=== PATIENT | male | born 1955 | race Caucasian/White ===

== ENCOUNTER 2017-12-22 20:23 | Emergency (ER) | payer MEDICARE, OTHER ==
[2017-12-22] MEDS: HYDROmorphONE 1 MG/ML SYG IM ×2 (21:21→23:09)
== END 2017-12-23 00:25 | disposition home or self-care (01) ==
LOC: E/R 12-23 00:25
DX: I73.9 Peripheral vascular disease, unspecified (principal); N18.6 End stage renal disease; I12.0 Hypertensive chronic kidney disease with stage 5 chronic kidney disease or end stage renal disease; I25.10 Atherosclerotic heart disease of native coronary artery without angina pectoris; Z79.82 Long term (current) use of aspirin; Z95.0 Presence of cardiac pacemaker; Z87.891 Personal history of nicotine dependence
CPT/HCPCS: 73130; 73130-LT; 93931; 96372; 99285-25

== ENCOUNTER 2018-01-30 16:57 | Inpatient (IN) | payer MEDICARE, OTHER ==
[2018-01-30] MEDS: ONDANSETRON 4 MG INJ IV (17:41)
[2018-01-30] MEDS: morphine 2 MG INJ IV (17:44)
[2018-01-30 17:45] LABS: ADD MAN DIFF? NO
[2018-01-30] MEDS: IPRATROPIUM (NEB) 0.5 MG/2.5 ML AMP NEB (17:47)
[2018-01-30] MEDS: LEVALBUTEROL (NEB) 1.25 MG/0.5 ML AMP INH (17:47)
[2018-01-30 17:48] LABS: ABNORMAL IP MESSAGE 1; BASOPHIL # 0.1 10^3/ul (0.0-0.1); BASOPHILS % 0.5 % (0.0-2.0); EOSINOPHILS % 0.1 % (0.0-7.0); HEMATOCRIT 35.7 % (42.0-52.0); LYMPHOCYTES # 0.3 10^3/ul (0.8-2.9); MEAN CORPUSCULAR HEMOGLOBIN 26.7 pg (29.0-33.0); MEAN CORPUSCULAR HGB CONC 30.8 g/dl (32.0-37.0); MEAN CORPUSCULAR VOLUME 86.7 fl (82.0-101.0); MEAN PLATELET VOLUME 9.5 fl (7.4-10.4); MONOCYTE # 1.3 10^3/ul (0.3-0.9); MONOCYTES % 12.9 % (0.0-11.0); NEUTROPHIL # 8.1 10^3/ul (1.6-7.5); NEUTROPHILS % 83.1 % (39.0-77.0); PLATELET COUNT 253 10^3/UL (140-415); POSITIVE DIFF @See below; RED BLOOD COUNT 4.12 10^6/ul (4.70-6.10); RED CELL DISTRIBUTION WIDTH 17.8 % (11.5-14.5)
[2018-01-30 17:48] LABS: WHITE BLOOD COUNT 9.8 10^3/ul (4.8-10.8)
[2018-01-30] MEDS: ACETAMINOPHEN 325 MG TAB PO (17:48)
[2018-01-30] MEDS: PROMETHAZINE/CODEINE 5ML CUP PO (17:49)
[2018-01-30 18:03] LABS: INR 1.47; PROTIME 18.1 Sec (11.9-14.9); PT RATIO 1.4
[2018-01-30 18:04] LABS: PARTIAL THROMBOPLASTIN TIME 32.6 Sec (25.0-35.0)
[2018-01-30 18:14] LABS: ALANINE AMINOTRANSFERASE 17 IU/L (13-69); ALBUMIN 4.1 g/dl (3.3-4.9); ALBUMIN/GLOBULIN RATIO 1.13; ALKALINE PHOSPHATASE 200 IU/L (42-121); ANION GAP 19 (8-16); ASPARTATE AMINO TRANSFERASE 17 IU/L (15-46); BILIRUBIN,INDIRECT 0.1 mg/dl (0-1.1); BILIRUBIN,TOTAL 0.1 mg/dl (0.2-1.3); BLOOD UREA NITROGEN 46 mg/dl (7-20); CALCIUM 11.5 mg/dl (8.4-10.2); CARBON DIOXIDE 30 mmol/L (21-31); CHLORIDE 95 mmol/L (97-110); CREATININE 5.62 mg/dl (0.61-1.24); GLUCOSE 131 mg/dl (70-220); POTASSIUM 4.6 mmol/L (3.5-5.1); SODIUM 139 mmol/L (135-144); TOTAL PROTEIN 7.7 g/dl (6.1-8.1)
[2018-01-30 18:17] LABS: LACTIC ACID 2.8 mmol/L (0.5-2.0)
[2018-01-30 18:25] LABS: TROPONIN-I 0.069 ng/ml (0.00-0.12)
[2018-01-30] MEDS: VANCOMYCIN 1 GM (PMX) 250 ML IVPB (19:05)
[2018-01-30 20:09] LABS: LACTIC ACID 1.5 mmol/L (0.5-2.0)
[2018-01-30] MEDS: PIPER-TAZO 2.25 GM (PMX) 50 ML IVPB (20:59)
[2018-01-30] MEDS: morphine 4 MG/ML VIAL IV (22:58)
[2018-01-30] MEDS ORDERED: VANCOMYCIN IV PER PHARMACY XX (23:00)
[2018-01-30 23:07] LABS: LACTIC ACID 1.2 mmol/L (0.5-2.0)
[2018-01-30 23:36] LABS: AADO2 Arterial 28.8 mmHg (7.0-24.0); Arterial Base Excess 4.2 mmol/L (-3.0-3); Arterial Blood Gas Oxygen Sat 92.9 mmHG (95.0-98.0); Arterial COHb 0.3 % (0.0-3.0); Arterial Fraction of Oxyhgb 92.5 % (93.0-99.0); Arterial HCO3 28.5 mmol/L (22.0-26.0); Arterial MetHb 0.1 % (0.0-1.5); Arterial Total Hemglobin 10.3 g/dl (12.0-18.0); Arterial pCO2 41.3 mmhg (35-45); MODE ROOM AIR; Site Right Brachial
[2018-01-30] MEDS: CEFEPIME 1GM/50 ML (PMX) 50 ML IVPB (23:41)
[2018-01-31] MEDS: LEVALBUTEROL (NEB) 0.63 MG/3 ML AMP HHN ×4 (00:15→23:24)
[2018-01-31] MEDS: HYDROCODONE/APAP (10/325) TAB PO (05:15)
[2018-01-31 05:47] LABS: ADD MAN DIFF? NO
[2018-01-31 05:52] LABS: WHITE BLOOD COUNT 8.9 10^3/ul (4.8-10.8)
[2018-01-31 05:52] LABS: ABNORMAL IP MESSAGE 1; BASOPHIL # 0.1 10^3/ul (0.0-0.1); BASOPHILS % 0.7 % (0.0-2.0); EOSINOPHILS # 0.1 10^3/ul (0.0-0.5); EOSINOPHILS % 0.6 % (0.0-7.0); HEMATOCRIT 31.7 % (42.0-52.0); HEMOGLOBIN 9.8 g/dl (14.0-18.0); LYMPHOCYTES # 0.4 10^3/ul (0.8-2.9); LYMPHOCYTES % 3.9 % (15.0-51.0); MEAN CORPUSCULAR HEMOGLOBIN 27.1 pg (29.0-33.0); MEAN CORPUSCULAR HGB CONC 30.9 g/dl (32.0-37.0); MEAN CORPUSCULAR VOLUME 87.8 fl (82.0-101.0); MEAN PLATELET VOLUME 9.7 fl (7.4-10.4); MONOCYTE # 1.1 10^3/ul (0.3-0.9); MONOCYTES % 12.4 % (0.0-11.0); NEUTROPHIL # 7.3 10^3/ul (1.6-7.5); NEUTROPHILS % 82.1 % (39.0-77.0); PLATELET COUNT 218 10^3/UL (140-415); POSITIVE DIFF @See below; RED BLOOD COUNT 3.61 10^6/ul (4.70-6.10); RED CELL DISTRIBUTION WIDTH 17.7 % (11.5-14.5)
[2018-01-31] MEDS: SEVELAMER CARBONATE 0.8 GM PKT PO ×3 (08:00→17:52)
[2018-01-31] MEDS: CALCIUM ACETATE 667 MG CAP PO ×3 (08:21→17:53)
[2018-01-31] MEDS: MULTIVIT/CA CARB/B CMPLX/FA TAB PO (08:21)
[2018-01-31] MEDS: AMLODIPINE 5 MG TAB PO (08:22)
[2018-01-31] MEDS: CINACALCET 30 MG TAB PO ×2 (08:22→23:45)
[2018-01-31] MEDS: CLOPIDOGREL 75 MG TAB PO (08:25)
[2018-01-31] MEDS: ASPIRIN (EC) 81 MG TAB PO (08:25)
[2018-01-31] MEDS: PROMETHAZINE/CODEINE 5ML CUP PO (15:06)
[2018-01-31] MEDS: morphine 2 MG INJ IV ×2 (18:08→21:11)
[2018-01-31] MEDS: LOSARTAN 25 MG TAB PO (23:45)
[2018-01-31] MEDS: ATORVASTATIN 40 MG TAB PO (23:46)
[2018-01-31] MEDS: CEFEPIME 1GM/50 ML (PMX) 50 ML IVPB (23:46)
[2018-01-31] MEDS: HYDROCODONE/APAP (5/325) TAB PO (23:46)
[2018-02-01] MEDS: morphine 2 MG INJ IV ×2 (05:31→18:12)
[2018-02-01 06:36] LABS: ADD MAN DIFF? NO
[2018-02-01 06:44] LABS: ABNORMAL IP MESSAGE 1; BASOPHIL # 0.1 10^3/ul (0.0-0.1); BASOPHILS % 0.7 % (0.0-2.0); EOSINOPHILS # 0.2 10^3/ul (0.0-0.5); EOSINOPHILS % 2.2 % (0.0-7.0); HEMOGLOBIN 9.7 g/dl (14.0-18.0); LYMPHOCYTES # 0.3 10^3/ul (0.8-2.9); LYMPHOCYTES % 2.8 % (15.0-51.0); MEAN CORPUSCULAR HEMOGLOBIN 27.6 pg (29.0-33.0); MEAN CORPUSCULAR HGB CONC 31.3 g/dl (32.0-37.0); MEAN CORPUSCULAR VOLUME 88.1 fl (82.0-101.0); MEAN PLATELET VOLUME 9.9 fl (7.4-10.4); MONOCYTE # 1.1 10^3/ul (0.3-0.9); MONOCYTES % 11.3 % (0.0-11.0); NEUTROPHIL # 7.8 10^3/ul (1.6-7.5); NEUTROPHILS % 82.7 % (39.0-77.0); PLATELET COUNT 204 10^3/UL (140-415); POSITIVE DIFF @See below; RED BLOOD COUNT 3.52 10^6/ul (4.70-6.10); RED CELL DISTRIBUTION WIDTH 17.9 % (11.5-14.5)
[2018-02-01 06:44] LABS: WHITE BLOOD COUNT 9.4 10^3/ul (4.8-10.8)
[2018-02-01 07:08] LABS: ANION GAP 17 (8-16); BLOOD UREA NITROGEN 36 mg/dl (7-20); CALCIUM 10.3 mg/dl (8.4-10.2); CARBON DIOXIDE 30 mmol/L (21-31); CHLORIDE 98 mmol/L (97-110); CREATININE 4.73 mg/dl (0.61-1.24); GLUCOSE 69 mg/dl (70-220); POTASSIUM 5.2 mmol/L (3.5-5.1); SODIUM 140 mmol/L (135-144)
[2018-02-01] MEDS: LEVALBUTEROL (NEB) 0.63 MG/3 ML AMP HHN ×2 (08:00→16:00)
[2018-02-01] MEDS: CINACALCET 30 MG TAB PO ×2 (08:39→20:42)
[2018-02-01] MEDS: SEVELAMER CARBONATE 0.8 GM PKT PO ×4 (08:39→18:12)
[2018-02-01] MEDS: AMLODIPINE 5 MG TAB PO (08:40)
[2018-02-01] MEDS: CLOPIDOGREL 75 MG TAB PO (08:40)
[2018-02-01] MEDS: CALCIUM ACETATE 667 MG CAP PO ×4 (08:40→18:06)
[2018-02-01] MEDS: MULTIVIT/CA CARB/B CMPLX/FA TAB PO (08:40)
[2018-02-01] MEDS: LOSARTAN 25 MG TAB PO ×2 (08:40→20:42)
[2018-02-01] MEDS: ASPIRIN 81 MG TAB PO (08:41)
[2018-02-01] MEDS: PROMETHAZINE/CODEINE 5ML CUP PO ×2 (08:47)
[2018-02-01] MEDS: VANCOMYCIN 750 MG in DEXTROSE 5% 150 ML IVPB (12:57)
[2018-02-01] MEDS: ATORVASTATIN 40 MG TAB PO (20:41)
[2018-02-01] MEDS: HYDROCODONE/APAP (5/325) TAB PO (20:49)
[2018-02-01] MEDS: CEFEPIME 1GM/50 ML (PMX) 50 ML IVPB (23:04)
[2018-02-02] MEDS: LEVALBUTEROL (NEB) 0.63 MG/3 ML AMP HHN ×4 (00:24→23:26)
[2018-02-02] MEDS: NIFEdipine (XL) 60 MG TAB PO ×3 (00:30→20:41)
[2018-02-02] MEDS: morphine 2 MG INJ IV ×2 (01:16→19:45)
[2018-02-02] MEDS: HYDROCODONE/APAP (5/325) TAB PO (04:53)
[2018-02-02] MEDS: CALCIUM ACETATE 667 MG CAP PO ×3 (07:55→18:28)
[2018-02-02 08:32] LABS: ADD MAN DIFF? NO
[2018-02-02 08:35] LABS: WHITE BLOOD COUNT 8.9 10^3/ul (4.8-10.8)
[2018-02-02 08:35] LABS: ABNORMAL IP MESSAGE 1; BASOPHIL # 0.1 10^3/ul (0.0-0.1); BASOPHILS % 0.8 % (0.0-2.0); EOSINOPHILS # 0.1 10^3/ul (0.0-0.5); EOSINOPHILS % 1.6 % (0.0-7.0); HEMATOCRIT 31.6 % (42.0-52.0); HEMOGLOBIN 9.6 g/dl (14.0-18.0); LYMPHOCYTES # 0.4 10^3/ul (0.8-2.9); LYMPHOCYTES % 4.4 % (15.0-51.0); MEAN CORPUSCULAR HEMOGLOBIN 26.7 pg (29.0-33.0); MEAN CORPUSCULAR HGB CONC 30.4 g/dl (32.0-37.0); MEAN PLATELET VOLUME 9.9 fl (7.4-10.4); MONOCYTES % 11.4 % (0.0-11.0); NEUTROPHIL # 7.2 10^3/ul (1.6-7.5); NEUTROPHILS % 81.5 % (39.0-77.0); PLATELET COUNT 225 10^3/UL (140-415); POSITIVE DIFF @See below; RED BLOOD COUNT 3.59 10^6/ul (4.70-6.10); RED CELL DISTRIBUTION WIDTH 17.6 % (11.5-14.5)
[2018-02-02] MEDS: ASPIRIN 81 MG TAB PO (09:00)
[2018-02-02] MEDS: MULTIVIT/CA CARB/B CMPLX/FA TAB PO (09:00)
[2018-02-02] MEDS: CLOPIDOGREL 75 MG TAB PO (09:00)
[2018-02-02] MEDS: CINACALCET 30 MG TAB PO ×2 (09:00→20:41)
[2018-02-02 09:02] LABS: ANION GAP 20 (8-16); BLOOD UREA NITROGEN 55 mg/dl (7-20); CALCIUM 10.1 mg/dl (8.4-10.2); CARBON DIOXIDE 28 mmol/L (21-31); CHLORIDE 97 mmol/L (97-110); CREATININE 6.55 mg/dl (0.61-1.24); GLUCOSE 63 mg/dl (70-220); POTASSIUM 5.7 mmol/L (3.5-5.1); SODIUM 139 mmol/L (135-144)
[2018-02-02] MEDS: SEVELAMER CARBONATE 0.8 GM PKT PO ×3 (09:19→18:29)
[2018-02-02 09:30] LABS: HEPATITIS B SURFACE ANTIGEN NEGATIVE (NEGATIVE)
[2018-02-02] MEDS: LOSARTAN 25 MG TAB PO ×2 (10:41→20:42)
[2018-02-02] MEDS: BENAZEPRIL 40 MG TAB PO (10:43)
[2018-02-02] MEDS: AMLODIPINE 5 MG TAB PO (10:43)
[2018-02-02] MEDS ORDERED: MEGESTROL 40 MG TAB PO (13:00)
[2018-02-02] MEDS: MEGESTROL (40 MG/ML) 10ML CUP PO ×2 (15:42→20:41)
[2018-02-02] MEDS: EPOETIN 4000 UNITS/1 ML INJ (ESRD) IV (18:30)
[2018-02-02] MEDS: ATORVASTATIN 40 MG TAB PO (20:41)
[2018-02-02] MEDS: CEFEPIME 1GM/50 ML (PMX) 50 ML IVPB (22:42)
[2018-02-03] MEDS: morphine 2 MG INJ IV ×3 (00:41→16:37)
[2018-02-03] MEDS: HYDROCODONE/APAP (5/325) TAB PO (01:44)
[2018-02-03] MEDS: LEVALBUTEROL (NEB) 0.63 MG/3 ML AMP HHN ×3 (08:00→22:16)
[2018-02-03] MEDS: AMLODIPINE 5 MG TAB PO (09:30)
[2018-02-03] MEDS: SEVELAMER CARBONATE 0.8 GM PKT PO ×3 (09:30→17:25)
[2018-02-03] MEDS: LOSARTAN 25 MG TAB PO ×2 (09:31→20:15)
[2018-02-03] MEDS: BENAZEPRIL 40 MG TAB PO (09:31)
[2018-02-03] MEDS: MEGESTROL (40 MG/ML) 10ML CUP PO ×2 (09:31→20:14)
[2018-02-03] MEDS: ASPIRIN 81 MG TAB PO (09:32)
[2018-02-03] MEDS: CLOPIDOGREL 75 MG TAB PO (09:32)
[2018-02-03] MEDS: MULTIVIT/CA CARB/B CMPLX/FA TAB PO (09:32)
[2018-02-03] MEDS: CALCIUM ACETATE 667 MG CAP PO ×3 (09:32→17:25)
[2018-02-03] MEDS: CINACALCET 30 MG TAB PO ×2 (09:32→20:14)
[2018-02-03] MEDS: NIFEdipine (XL) 60 MG TAB PO ×2 (09:32→20:16)
[2018-02-03] MEDS: PROMETHAZINE/CODEINE 5ML CUP PO (17:21)
[2018-02-03] MEDS: LACTULOSE 30ML CUP PO (18:47)
[2018-02-03] MEDS: ONDANSETRON 4 MG TAB PO (19:58)
[2018-02-03] MEDS: ATORVASTATIN 40 MG TAB PO (20:20)
[2018-02-04] MEDS: CEFEPIME 1GM/50 ML (PMX) 50 ML IVPB (00:10)
[2018-02-04] MEDS: morphine 2 MG INJ IV ×4 (00:10→20:21)
[2018-02-04] MEDS: LEVALBUTEROL (NEB) 0.63 MG/3 ML AMP HHN ×2 (08:00→15:24)
[2018-02-04] MEDS: CINACALCET 30 MG TAB PO ×2 (09:03→20:20)
[2018-02-04] MEDS: MEGESTROL (40 MG/ML) 10ML CUP PO ×2 (09:03→20:19)
[2018-02-04] MEDS: SEVELAMER CARBONATE 0.8 GM PKT PO ×3 (09:03→17:55)
[2018-02-04] MEDS: MULTIVIT/CA CARB/B CMPLX/FA TAB PO (09:04)
[2018-02-04] MEDS: NIFEdipine (XL) 60 MG TAB PO ×2 (09:05→20:20)
[2018-02-04] MEDS: AMLODIPINE 5 MG TAB PO (09:05)
[2018-02-04] MEDS: BENAZEPRIL 40 MG TAB PO (09:05)
[2018-02-04] MEDS: CLOPIDOGREL 75 MG TAB PO (09:06)
[2018-02-04] MEDS: LOSARTAN 25 MG TAB PO ×2 (09:06→20:20)
[2018-02-04] MEDS: ASPIRIN 81 MG TAB PO (09:07)
[2018-02-04] MEDS: CALCIUM ACETATE 667 MG CAP PO ×3 (09:07→17:55)
[2018-02-04 09:21] LABS: ADD MAN DIFF? NO
[2018-02-04 09:30] LABS: ABNORMAL IP MESSAGE 1; BASOPHILS % 0.4 % (0.0-2.0); EOSINOPHILS # 0.1 10^3/ul (0.0-0.5); HEMATOCRIT 30.5 % (42.0-52.0); HEMOGLOBIN 9.6 g/dl (14.0-18.0); LYMPHOCYTES # 0.4 10^3/ul (0.8-2.9); LYMPHOCYTES % 4.9 % (15.0-51.0); MEAN CORPUSCULAR HGB CONC 31.5 g/dl (32.0-37.0); MEAN CORPUSCULAR VOLUME 85.9 fl (82.0-101.0); MEAN PLATELET VOLUME 10.2 fl (7.4-10.4); MONOCYTE # 1.2 10^3/ul (0.3-0.9); MONOCYTES % 12.7 % (0.0-11.0); NEUTROPHIL # 7.3 10^3/ul (1.6-7.5); NEUTROPHILS % 80.6 % (39.0-77.0); PLATELET COUNT 256 10^3/UL (140-415); POSITIVE DIFF @See below; RED BLOOD COUNT 3.55 10^6/ul (4.70-6.10); RED CELL DISTRIBUTION WIDTH 17.5 % (11.5-14.5)
[2018-02-04 09:30] LABS: WHITE BLOOD COUNT 9.1 10^3/ul (4.8-10.8)
[2018-02-04 09:50] LABS: ANION GAP 18 (8-16); BLOOD UREA NITROGEN 51 mg/dl (7-20); CALCIUM 9.2 mg/dl (8.4-10.2); CARBON DIOXIDE 29 mmol/L (21-31); CHLORIDE 98 mmol/L (97-110); CREATININE 5.99 mg/dl (0.61-1.24); GLUCOSE 104 mg/dl (70-220); POTASSIUM 5.3 mmol/L (3.5-5.1); SODIUM 140 mmol/L (135-144)
[2018-02-04] MEDS: PROMETHAZINE/CODEINE 5ML CUP PO (11:47)
[2018-02-04] MEDS: ATORVASTATIN 40 MG TAB PO (20:20)
[2018-02-04] MEDS: NA POLYST SULFON 15 GM/60 ML BTL PO (20:21)
[2018-02-05] MEDS: CEFEPIME 1GM/50 ML (PMX) 50 ML IVPB (00:12)
[2018-02-05 06:49] LABS: ADD MAN DIFF? NO
[2018-02-05 06:54] LABS: WHITE BLOOD COUNT 9.8 10^3/ul (4.8-10.8)
[2018-02-05 06:54] LABS: ABNORMAL IP MESSAGE 1; BASOPHIL # 0.1 10^3/ul (0.0-0.1); BASOPHILS % 0.5 % (0.0-2.0); EOSINOPHILS # 0.1 10^3/ul (0.0-0.5); EOSINOPHILS % 0.5 % (0.0-7.0); HEMATOCRIT 30.3 % (42.0-52.0); HEMOGLOBIN 9.7 g/dl (14.0-18.0); LYMPHOCYTES # 0.5 10^3/ul (0.8-2.9); LYMPHOCYTES % 5.1 % (15.0-51.0); MEAN CORPUSCULAR HEMOGLOBIN 26.6 pg (29.0-33.0); MEAN CORPUSCULAR VOLUME 83.2 fl (82.0-101.0); MEAN PLATELET VOLUME 9.7 fl (7.4-10.4); MONOCYTE # 1.3 10^3/ul (0.3-0.9); MONOCYTES % 13.2 % (0.0-11.0); NEUTROPHIL # 7.9 10^3/ul (1.6-7.5); NEUTROPHILS % 80.2 % (39.0-77.0); PLATELET COUNT 256 10^3/UL (140-415); POSITIVE DIFF @See below; RED BLOOD COUNT 3.64 10^6/ul (4.70-6.10); RED CELL DISTRIBUTION WIDTH 17.3 % (11.5-14.5)
[2018-02-05 07:20] LABS: ANION GAP 19 (8-16); BLOOD UREA NITROGEN 74 mg/dl (7-20); CALCIUM 8.8 mg/dl (8.4-10.2); CARBON DIOXIDE 26 mmol/L (21-31); CHLORIDE 99 mmol/L (97-110); CREATININE 7.13 mg/dl (0.61-1.24); GLUCOSE 83 mg/dl (70-220); POTASSIUM 5.8 mmol/L (3.5-5.1); SODIUM 138 mmol/L (135-144)
[2018-02-05] MEDS: SEVELAMER CARBONATE 0.8 GM PKT PO ×3 (08:27→17:33)
[2018-02-05] MEDS: CALCIUM ACETATE 667 MG CAP PO ×3 (08:27→17:33)
[2018-02-05] MEDS: morphine 2 MG INJ IV ×2 (08:44→20:00)
[2018-02-05] MEDS: CLOPIDOGREL 75 MG TAB PO (09:00)
[2018-02-05] MEDS: LOSARTAN 25 MG TAB PO ×2 (09:00→21:00)
[2018-02-05] MEDS: MULTIVIT/CA CARB/B CMPLX/FA TAB PO (09:00)
[2018-02-05] MEDS: AMLODIPINE 5 MG TAB PO (09:00)
[2018-02-05] MEDS: NIFEdipine (XL) 60 MG TAB PO ×2 (09:00→21:00)
[2018-02-05] MEDS: ASPIRIN 81 MG TAB PO (09:00)
[2018-02-05] MEDS: MEGESTROL (40 MG/ML) 10ML CUP PO ×2 (09:00→21:00)
[2018-02-05] MEDS: BENAZEPRIL 40 MG TAB PO (09:00)
[2018-02-05] MEDS: CINACALCET 30 MG TAB PO ×2 (09:00→21:00)
[2018-02-05] MEDS: LEVALBUTEROL (NEB) 0.63 MG/3 ML AMP HHN ×4 (09:18→23:33)
[2018-02-05] MEDS: VANCOMYCIN 750 MG in DEXTROSE 5% 150 ML IVPB (12:39)
[2018-02-05] MEDS: EPOETIN 4000 UNITS/1 ML INJ (ESRD) IV (17:34)
[2018-02-05] MEDS: ATORVASTATIN 40 MG TAB PO (21:00)
[2018-02-05] MEDS: HYDROCODONE/APAP (5/325) TAB PO (23:24)
[2018-02-06] MEDS: morphine 2 MG INJ IV ×3 (00:06→20:25)
[2018-02-06] MEDS: hydrALAzine 20 MG INJ IV ×2 (06:25→13:52)
[2018-02-06 07:42] LABS: ADD MAN DIFF? NO
[2018-02-06] MEDS: LEVALBUTEROL (NEB) 0.63 MG/3 ML AMP HHN ×3 (07:44→23:44)
[2018-02-06 07:45] LABS: ABNORMAL IP MESSAGE 1; BASOPHIL # 0.1 10^3/ul (0.0-0.1); BASOPHILS % 0.6 % (0.0-2.0); EOSINOPHILS # 0.1 10^3/ul (0.0-0.5); EOSINOPHILS % 1.6 % (0.0-7.0); HEMOGLOBIN 9.7 g/dl (14.0-18.0); LYMPHOCYTES # 0.4 10^3/ul (0.8-2.9); MEAN CORPUSCULAR HEMOGLOBIN 26.8 pg (29.0-33.0); MEAN CORPUSCULAR HGB CONC 32.3 g/dl (32.0-37.0); MEAN CORPUSCULAR VOLUME 82.9 fl (82.0-101.0); MEAN PLATELET VOLUME 10.2 fl (7.4-10.4); MONOCYTE # 1.1 10^3/ul (0.3-0.9); MONOCYTES % 12.5 % (0.0-11.0); NEUTROPHIL # 7.2 10^3/ul (1.6-7.5); NEUTROPHILS % 80.6 % (39.0-77.0); PLATELET COUNT 251 10^3/UL (140-415); POSITIVE DIFF @See below; RED BLOOD COUNT 3.62 10^6/ul (4.70-6.10); RED CELL DISTRIBUTION WIDTH 17.4 % (11.5-14.5)
[2018-02-06 07:45] LABS: WHITE BLOOD COUNT 8.9 10^3/ul (4.8-10.8)
[2018-02-06] MEDS: SEVELAMER CARBONATE 0.8 GM PKT PO ×3 (07:55→17:49)
[2018-02-06] MEDS: HYDROCODONE/APAP (5/325) TAB PO ×4 (07:58→23:16)
[2018-02-06 08:08] LABS: ANION GAP 20 (8-16); BLOOD UREA NITROGEN 33 mg/dl (7-20); CALCIUM 9.2 mg/dl (8.4-10.2); CARBON DIOXIDE 30 mmol/L (21-31); CHLORIDE 94 mmol/L (97-110); CREATININE 4.04 mg/dl (0.61-1.24); GLUCOSE 67 mg/dl (70-220); POTASSIUM 4.5 mmol/L (3.5-5.1); SODIUM 139 mmol/L (135-144)
[2018-02-06] MEDS: BENAZEPRIL 40 MG TAB PO (08:35)
[2018-02-06] MEDS: LOSARTAN 25 MG TAB PO ×2 (08:35→20:27)
[2018-02-06] MEDS: AMLODIPINE 5 MG TAB PO (08:36)
[2018-02-06] MEDS: NIFEdipine (XL) 60 MG TAB PO ×2 (08:36→20:27)
[2018-02-06] MEDS: ASPIRIN 81 MG TAB PO (08:50)
[2018-02-06] MEDS: MEGESTROL (40 MG/ML) 10ML CUP PO ×2 (08:51→20:35)
[2018-02-06] MEDS: CINACALCET 30 MG TAB PO ×2 (08:51→20:35)
[2018-02-06] MEDS: MULTIVIT/CA CARB/B CMPLX/FA TAB PO (08:51)
[2018-02-06] MEDS: CLOPIDOGREL 75 MG TAB PO (08:51)
[2018-02-06] MEDS: ATORVASTATIN 40 MG TAB PO (20:35)
[2018-02-07] MEDS: HYDROCODONE/APAP (5/325) TAB PO (06:53)
[2018-02-07] MEDS: LEVALBUTEROL (NEB) 0.63 MG/3 ML AMP HHN ×2 (08:00→16:00)
[2018-02-07] MEDS: MULTIVIT/CA CARB/B CMPLX/FA TAB PO (09:00)
[2018-02-07] MEDS: CLOPIDOGREL 75 MG TAB PO (09:07)
[2018-02-07] MEDS: CINACALCET 30 MG TAB PO ×2 (09:07→21:00)
[2018-02-07] MEDS: PROMETHAZINE/CODEINE 5ML CUP PO ×2 (09:07→17:46)
[2018-02-07] MEDS: AMLODIPINE 5 MG TAB PO (09:07)
[2018-02-07] MEDS: BENAZEPRIL 40 MG TAB PO (09:08)
[2018-02-07] MEDS: NIFEdipine (XL) 60 MG TAB PO ×2 (09:08→21:00)
[2018-02-07] MEDS: MEGESTROL (40 MG/ML) 10ML CUP PO ×2 (09:09→21:00)
[2018-02-07] MEDS: LOSARTAN 25 MG TAB PO ×2 (09:09→21:00)
[2018-02-07] MEDS: ASPIRIN 81 MG TAB PO (09:09)
[2018-02-07] MEDS: SEVELAMER CARBONATE 0.8 GM PKT PO ×3 (09:09→17:55)
[2018-02-07 15:30] LABS: ADD MAN DIFF? NO
[2018-02-07 15:39] LABS: WHITE BLOOD COUNT 8.8 10^3/ul (4.8-10.8)
[2018-02-07 15:39] LABS: BASOPHILS % 0.3 % (0.0-2.0); EOSINOPHILS % 0.5 % (0.0-7.0); HEMATOCRIT 29.8 % (42.0-52.0); HEMOGLOBIN 9.7 g/dl (14.0-18.0); LYMPHOCYTES # 0.3 10^3/ul (0.8-2.9); LYMPHOCYTES % 3.1 % (15.0-51.0); MEAN CORPUSCULAR HEMOGLOBIN 26.9 pg (29.0-33.0); MEAN CORPUSCULAR HGB CONC 32.6 g/dl (32.0-37.0); MEAN CORPUSCULAR VOLUME 82.8 fl (82.0-101.0); MEAN PLATELET VOLUME 9.7 fl (7.4-10.4); MONOCYTE # 1.2 10^3/ul (0.3-0.9); MONOCYTES % 13.2 % (0.0-11.0); NEUTROPHIL # 7.3 10^3/ul (1.6-7.5); NEUTROPHILS % 82.3 % (39.0-77.0); PLATELET COUNT 316 10^3/UL (140-415); RED CELL DISTRIBUTION WIDTH 17.1 % (11.5-14.5)
[2018-02-07 15:55] LABS: ANION GAP 16 (8-16); BLOOD UREA NITROGEN 22 mg/dl (7-20); CALCIUM 9.1 mg/dl (8.4-10.2); CARBON DIOXIDE 31 mmol/L (21-31); CHLORIDE 99 mmol/L (97-110); CREATININE 2.71 mg/dl (0.61-1.24); GLUCOSE 98 mg/dl (70-220); SODIUM 142 mmol/L (135-144)
[2018-02-07] MEDS: morphine 2 MG INJ IV ×2 (16:02→23:45)
[2018-02-07] MEDS: EPOETIN 4000 UNITS/1 ML INJ (ESRD) IV (17:06)
[2018-02-07] MEDS: DIPHENHYDRAMINE 25 MG CAP PO (21:01)
[2018-02-07] MEDS: ATORVASTATIN 40 MG TAB PO (21:08)
[2018-02-08] MEDS: morphine 2 MG INJ IV ×2 (06:02→18:54)
[2018-02-08] MEDS: LEVALBUTEROL (NEB) 0.63 MG/3 ML AMP HHN ×3 (07:45→16:04)
[2018-02-08] MEDS: CINACALCET 30 MG TAB PO ×2 (09:00→21:00)
[2018-02-08] MEDS: MULTIVIT/CA CARB/B CMPLX/FA TAB PO (09:00)
[2018-02-08] MEDS: AMLODIPINE 5 MG TAB PO (09:00)
[2018-02-08] MEDS: BENAZEPRIL 40 MG TAB PO (09:00)
[2018-02-08] MEDS: MEGESTROL (40 MG/ML) 10ML CUP PO ×2 (09:00→21:00)
[2018-02-08] MEDS: ASPIRIN 81 MG TAB PO (09:00)
[2018-02-08] MEDS: LOSARTAN 25 MG TAB PO ×2 (09:00→21:00)
[2018-02-08] MEDS: CLOPIDOGREL 75 MG TAB PO (09:00)
[2018-02-08] MEDS: NIFEdipine (XL) 60 MG TAB PO ×2 (09:00→21:00)
[2018-02-08] MEDS: SEVELAMER CARBONATE 0.8 GM PKT PO ×4 (09:17→18:09)
[2018-02-08] MEDS: LACTULOSE 30ML CUP PO (12:06)
[2018-02-08] MEDS: NYSTATIN SUSP 5 ML CUP PO ×3 (13:00→21:00)
[2018-02-08] MEDS: ATORVASTATIN 40 MG TAB PO (21:00)
[2018-02-09] MEDS: morphine 2 MG INJ IV ×3 (04:20→22:43)
[2018-02-09] MEDS: SEVELAMER CARBONATE 0.8 GM PKT PO ×3 (07:55→17:04)
[2018-02-09 07:56] LABS: HEMOGLOBIN 9.5 g/dl (14.0-18.0)
[2018-02-09 07:56] LABS: HEMATOCRIT 29.5 % (42.0-52.0)
[2018-02-09] MEDS: LEVALBUTEROL (NEB) 0.63 MG/3 ML AMP HHN ×4 (08:00→23:24)
[2018-02-09 08:17] LABS: ADD MAN DIFF? NO
[2018-02-09 08:19] LABS: WHITE BLOOD COUNT 9.8 10^3/ul (4.8-10.8)
[2018-02-09 08:19] LABS: ABNORMAL IP MESSAGE 1; BASOPHIL # 0.1 10^3/ul (0.0-0.1); BASOPHILS % 0.5 % (0.0-2.0); EOSINOPHILS % 0.2 % (0.0-7.0); HEMATOCRIT 29.2 % (42.0-52.0); HEMOGLOBIN 9.5 g/dl (14.0-18.0); LYMPHOCYTES # 0.6 10^3/ul (0.8-2.9); LYMPHOCYTES % 5.9 % (15.0-51.0); MEAN CORPUSCULAR HEMOGLOBIN 27.1 pg (29.0-33.0); MEAN CORPUSCULAR HGB CONC 32.5 g/dl (32.0-37.0); MEAN CORPUSCULAR VOLUME 83.4 fl (82.0-101.0); MEAN PLATELET VOLUME 9.3 fl (7.4-10.4); MONOCYTE # 1.2 10^3/ul (0.3-0.9); MONOCYTES % 12.4 % (0.0-11.0); NEUTROPHIL # 7.9 10^3/ul (1.6-7.5); NEUTROPHILS % 80.5 % (39.0-77.0); PLATELET COUNT 305 10^3/UL (140-415); POSITIVE DIFF @See below; RED CELL DISTRIBUTION WIDTH 17.4 % (11.5-14.5)
[2018-02-09 08:23] LABS: ANION GAP 21 (8-16); BLOOD UREA NITROGEN 47 mg/dl (7-20); CALCIUM 9.7 mg/dl (8.4-10.2); CARBON DIOXIDE 29 mmol/L (21-31); CHLORIDE 99 mmol/L (97-110); CREATININE 5.89 mg/dl (0.61-1.24); GLUCOSE 84 mg/dl (70-220); POTASSIUM 5.1 mmol/L (3.5-5.1); SODIUM 144 mmol/L (135-144)
[2018-02-09] MEDS: LOSARTAN 25 MG TAB PO ×2 (09:00→21:00)
[2018-02-09] MEDS: CLOPIDOGREL 75 MG TAB PO (09:00)
[2018-02-09] MEDS: MULTIVIT/CA CARB/B CMPLX/FA TAB PO (09:00)
[2018-02-09] MEDS: ASPIRIN 81 MG TAB PO (09:00)
[2018-02-09] MEDS: CINACALCET 30 MG TAB PO ×2 (09:00→21:00)
[2018-02-09] MEDS: MEGESTROL (40 MG/ML) 10ML CUP PO ×2 (09:00→21:00)
[2018-02-09] MEDS: NYSTATIN SUSP 5 ML CUP PO ×3 (09:00→21:00)
[2018-02-09] MEDS: NIFEdipine (XL) 60 MG TAB PO ×2 (09:27→21:00)
[2018-02-09] MEDS: BENAZEPRIL 40 MG TAB PO (09:27)
[2018-02-09] MEDS: AMLODIPINE 5 MG TAB PO (09:28)
[2018-02-09] MEDS: HYDROCODONE/APAP (5/325) TAB PO (10:29)
[2018-02-09] MEDS: EPOETIN 4000 UNITS/1 ML INJ (ESRD) IV (17:05)
[2018-02-09] MEDS: PROMETHAZINE/CODEINE 5ML CUP PO (17:49)
[2018-02-09] MEDS: ATORVASTATIN 40 MG TAB PO (21:00)
[2018-02-09] MEDS: ONDANSETRON 4 MG TAB PO (21:37)
[2018-02-09] MEDS ORDERED: ALBUTEROL 0.083% (NEB) 2.5 MG/3 ML AMP HHN (22:00)
[2018-02-09] MEDS ORDERED: IPRATROPIUM (NEB) 0.5 MG/2.5 ML AMP HHN (22:00)
[2018-02-09] MEDS: AL HYDROX/MG HYDROX/SIMETH 30 ML CUP PO (22:43)
[2018-02-10] MEDS: ZOLPIDEM 5 MG TAB PO (02:02)
[2018-02-10 06:59] LABS: ADD MAN DIFF? NO
[2018-02-10 07:04] LABS: ABNORMAL IP MESSAGE 1; BASOPHIL # 0.1 10^3/ul (0.0-0.1); BASOPHILS % 0.4 % (0.0-2.0); HEMATOCRIT 30.4 % (42.0-52.0); HEMOGLOBIN 9.6 g/dl (14.0-18.0); LYMPHOCYTES # 0.5 10^3/ul (0.8-2.9); LYMPHOCYTES % 3.9 % (15.0-51.0); MEAN CORPUSCULAR HEMOGLOBIN 26.4 pg (29.0-33.0); MEAN CORPUSCULAR HGB CONC 31.6 g/dl (32.0-37.0); MEAN CORPUSCULAR VOLUME 83.7 fl (82.0-101.0); MEAN PLATELET VOLUME 9.2 fl (7.4-10.4); MONOCYTE # 1.4 10^3/ul (0.3-0.9); MONOCYTES % 11.5 % (0.0-11.0); NEUTROPHIL # 10.5 10^3/ul (1.6-7.5); NEUTROPHILS % 83.7 % (39.0-77.0); PLATELET COUNT 369 10^3/UL (140-415); POSITIVE DIFF @See below; RED BLOOD COUNT 3.63 10^6/ul (4.70-6.10); RED CELL DISTRIBUTION WIDTH 17.3 % (11.5-14.5)
[2018-02-10 07:04] LABS: WHITE BLOOD COUNT 12.5 10^3/ul (4.8-10.8)
[2018-02-10 07:21] LABS: ANION GAP 21 (8-16); BLOOD UREA NITROGEN 70 mg/dl (7-20); CALCIUM 9.8 mg/dl (8.4-10.2); CARBON DIOXIDE 31 mmol/L (21-31); CHLORIDE 97 mmol/L (97-110); CREATININE 7.49 mg/dl (0.61-1.24); GLUCOSE 120 mg/dl (70-220); POTASSIUM 5.5 mmol/L (3.5-5.1); SODIUM 143 mmol/L (135-144)
[2018-02-10] MEDS: LEVALBUTEROL (NEB) 0.63 MG/3 ML AMP HHN ×2 (08:00→16:00)
[2018-02-10] MEDS: NYSTATIN SUSP 5 ML CUP PO ×4 (08:14→20:53)
[2018-02-10] MEDS: MULTIVIT/CA CARB/B CMPLX/FA TAB PO (08:15)
[2018-02-10] MEDS: CINACALCET 30 MG TAB PO ×2 (08:15→20:52)
[2018-02-10] MEDS: CLOPIDOGREL 75 MG TAB PO (08:15)
[2018-02-10] MEDS: MEGESTROL (40 MG/ML) 10ML CUP PO ×2 (08:16→20:53)
[2018-02-10] MEDS: ASPIRIN 81 MG TAB PO (08:16)
[2018-02-10] MEDS: LOSARTAN 25 MG TAB PO ×2 (09:00→20:52)
[2018-02-10] MEDS: BENAZEPRIL 40 MG TAB PO (09:00)
[2018-02-10] MEDS: NIFEdipine (XL) 60 MG TAB PO ×2 (09:00→20:53)
[2018-02-10] MEDS: AMLODIPINE 5 MG TAB PO (09:00)
[2018-02-10] MEDS: SEVELAMER CARBONATE 0.8 GM PKT PO ×3 (09:08→17:15)
[2018-02-10] MEDS: morphine 2 MG INJ IV ×2 (10:00→18:03)
[2018-02-10] MEDS: HYDROCODONE/APAP (5/325) TAB PO (12:31)
[2018-02-10] MEDS: AL HYDROX/MG HYDROX/SIMETH 30 ML CUP PO ×2 (12:52→20:52)
[2018-02-10] MEDS: ATORVASTATIN 40 MG TAB PO (20:52)
[2018-02-10] MEDS: PROMETHAZINE/CODEINE 5ML CUP PO (20:57)
[2018-02-11] MEDS: ONDANSETRON 4 MG TAB PO (00:17)
[2018-02-11] MEDS: hydrALAzine 20 MG INJ IV (00:17)
[2018-02-11] MEDS: morphine 2 MG INJ IV ×3 (03:26→20:11)
[2018-02-11] MEDS: LEVALBUTEROL (NEB) 0.63 MG/3 ML AMP HHN ×4 (08:00→23:36)
[2018-02-11] MEDS: NYSTATIN SUSP 5 ML CUP PO ×4 (09:00→22:58)
[2018-02-11] MEDS: SEVELAMER CARBONATE 0.8 GM PKT PO ×3 (09:38→17:49)
[2018-02-11] MEDS: LOSARTAN 25 MG TAB PO ×2 (10:22→22:58)
[2018-02-11] MEDS: MEGESTROL (40 MG/ML) 10ML CUP PO ×2 (10:22→22:58)
[2018-02-11] MEDS: BENAZEPRIL 40 MG TAB PO (10:22)
[2018-02-11] MEDS: ASPIRIN 81 MG TAB PO (10:22)
[2018-02-11] MEDS: AMLODIPINE 5 MG TAB PO (10:23)
[2018-02-11] MEDS: CINACALCET 30 MG TAB PO ×2 (10:23→22:58)
[2018-02-11] MEDS: NIFEdipine (XL) 60 MG TAB PO ×2 (10:23→22:58)
[2018-02-11] MEDS: CLOPIDOGREL 75 MG TAB PO (10:23)
[2018-02-11] MEDS: MULTIVIT/CA CARB/B CMPLX/FA TAB PO (10:23)
[2018-02-11] MEDS: AL HYDROX/MG HYDROX/SIMETH 30 ML CUP PO (16:47)
[2018-02-11] MEDS: ATORVASTATIN 40 MG TAB PO (22:58)
[2018-02-12] MEDS: ONDANSETRON 4 MG TAB PO (01:31)
[2018-02-12] MEDS: morphine 2 MG INJ IV ×3 (01:31→23:38)
[2018-02-12] MEDS: DIPHENHYDRAMINE 25 MG CAP PO (01:31)
[2018-02-12 06:48] LABS: ADD MAN DIFF? NO
[2018-02-12 06:54] LABS: WHITE BLOOD COUNT 14.6 10^3/ul (4.8-10.8)
[2018-02-12 06:54] LABS: ABNORMAL IP MESSAGE 1; BASOPHILS % 0.3 % (0.0-2.0); HEMATOCRIT 29.3 % (42.0-52.0); HEMOGLOBIN 9.3 g/dl (14.0-18.0); LYMPHOCYTES # 0.5 10^3/ul (0.8-2.9); LYMPHOCYTES % 3.5 % (15.0-51.0); MEAN CORPUSCULAR HEMOGLOBIN 26.5 pg (29.0-33.0); MEAN CORPUSCULAR HGB CONC 31.7 g/dl (32.0-37.0); MEAN CORPUSCULAR VOLUME 83.5 fl (82.0-101.0); MEAN PLATELET VOLUME 9.7 fl (7.4-10.4); MONOCYTE # 1.4 10^3/ul (0.3-0.9); MONOCYTES % 9.7 % (0.0-11.0); NEUTROPHIL # 12.6 10^3/ul (1.6-7.5); NEUTROPHILS % 85.9 % (39.0-77.0); PLATELET COUNT 393 10^3/UL (140-415); POSITIVE DIFF @See below; RED BLOOD COUNT 3.51 10^6/ul (4.70-6.10); RED CELL DISTRIBUTION WIDTH 17.4 % (11.5-14.5)
[2018-02-12 07:24] LABS: ANION GAP 20 (8-16); BLOOD UREA NITROGEN 79 mg/dl (7-20); CARBON DIOXIDE 32 mmol/L (21-31); CHLORIDE 98 mmol/L (97-110); CREATININE 7.35 mg/dl (0.61-1.24); GLUCOSE 120 mg/dl (70-220); POTASSIUM 5.7 mmol/L (3.5-5.1); SODIUM 144 mmol/L (135-144)
[2018-02-12] MEDS: LEVALBUTEROL (NEB) 0.63 MG/3 ML AMP HHN ×2 (07:54→16:45)
[2018-02-12] MEDS: NYSTATIN SUSP 5 ML CUP PO ×5 (09:00→23:20)
[2018-02-12] MEDS: SEVELAMER CARBONATE 0.8 GM PKT PO ×3 (09:24→17:55)
[2018-02-12] MEDS: LOSARTAN 25 MG TAB PO ×3 (10:12→23:19)
[2018-02-12] MEDS: ASPIRIN 81 MG TAB PO (10:12)
[2018-02-12] MEDS: MULTIVIT/CA CARB/B CMPLX/FA TAB PO (10:13)
[2018-02-12] MEDS: CINACALCET 30 MG TAB PO ×3 (10:13→23:18)
[2018-02-12] MEDS: AMLODIPINE 5 MG TAB PO (10:13)
[2018-02-12] MEDS: NIFEdipine (XL) 60 MG TAB PO ×3 (10:13→23:18)
[2018-02-12] MEDS: CLOPIDOGREL 75 MG TAB PO (10:13)
[2018-02-12] MEDS: MEGESTROL (40 MG/ML) 10ML CUP PO ×3 (10:13→23:20)
[2018-02-12] MEDS: BENAZEPRIL 40 MG TAB PO (10:13)
[2018-02-12] MEDS: LACTULOSE 30ML CUP PO (16:31)
[2018-02-12] MEDS: EPOETIN 4000 UNITS/1 ML INJ (ESRD) IV (17:00)
[2018-02-12] MEDS: ATORVASTATIN 40 MG TAB PO ×2 (21:00→23:19)
[2018-02-12 21:52] LABS: HEPATITIS B SURFACE ANTIBODY POSITIVE (NEGATIVE)
[2018-02-12] MEDS: NA POLYST SULFON 15 GM/60 ML BTL PO ×2 (23:20→23:44)
[2018-02-13] MEDS: morphine 2 MG INJ IV (05:07)
[2018-02-13 07:26] LABS: ADD MAN DIFF? NO
[2018-02-13] MEDS: LEVALBUTEROL (NEB) 0.63 MG/3 ML AMP HHN ×3 (07:54→16:00)
[2018-02-13 08:17] LABS: WHITE BLOOD COUNT 12.9 10^3/ul (4.8-10.8)
[2018-02-13 08:17] LABS: ABNORMAL IP MESSAGE 1; BASOPHIL # 0.1 10^3/ul (0.0-0.1); BASOPHILS % 0.4 % (0.0-2.0); EOSINOPHILS % 0.1 % (0.0-7.0); HEMATOCRIT 31.6 % (42.0-52.0); HEMOGLOBIN 10.1 g/dl (14.0-18.0); LYMPHOCYTES # 0.5 10^3/ul (0.8-2.9); LYMPHOCYTES % 3.9 % (15.0-51.0); MEAN CORPUSCULAR HEMOGLOBIN 26.9 pg (29.0-33.0); MEAN PLATELET VOLUME 9.2 fl (7.4-10.4); MONOCYTE # 1.1 10^3/ul (0.3-0.9); MONOCYTES % 8.5 % (0.0-11.0); NEUTROPHIL # 11.2 10^3/ul (1.6-7.5); NEUTROPHILS % 86.5 % (39.0-77.0); PLATELET COUNT 411 10^3/UL (140-415); POSITIVE DIFF @See below; RED BLOOD COUNT 3.76 10^6/ul (4.70-6.10); RED CELL DISTRIBUTION WIDTH 17.6 % (11.5-14.5)
[2018-02-13 08:18] LABS: ANION GAP 26 (8-16); BLOOD UREA NITROGEN 102 mg/dl (7-20); CALCIUM 10.9 mg/dl (8.4-10.2); CARBON DIOXIDE 30 mmol/L (21-31); CHLORIDE 97 mmol/L (97-110); CREATININE 9.28 mg/dl (0.61-1.24); GLUCOSE 81 mg/dl (70-220); SODIUM 146 mmol/L (135-144)
[2018-02-13 08:29] LABS: POTASSIUM 6.6 mmol/L (3.5-5.1)
[2018-02-13] MEDS: BENAZEPRIL 40 MG TAB PO (09:00)
[2018-02-13] MEDS: MULTIVIT/CA CARB/B CMPLX/FA TAB PO (09:00)
[2018-02-13] MEDS: MEGESTROL (40 MG/ML) 10ML CUP PO ×2 (09:00→21:00)
[2018-02-13] MEDS: AMLODIPINE 5 MG TAB PO (09:00)
[2018-02-13] MEDS: ASPIRIN 81 MG TAB PO (09:00)
[2018-02-13] MEDS: NYSTATIN SUSP 5 ML CUP PO ×4 (09:00→21:00)
[2018-02-13] MEDS: CINACALCET 30 MG TAB PO ×2 (09:00→21:00)
[2018-02-13] MEDS: CLOPIDOGREL 75 MG TAB PO (09:00)
[2018-02-13] MEDS: NIFEdipine (XL) 60 MG TAB PO ×2 (09:00→21:00)
[2018-02-13] MEDS: LOSARTAN 25 MG TAB PO ×2 (09:00→21:00)
[2018-02-13] MEDS: SEVELAMER CARBONATE 0.8 GM PKT PO ×3 (09:08→17:34)
[2018-02-13] MEDS: NA POLYST SULFON 15 GM/60 ML BTL PO (09:24)
[2018-02-13] MEDS: HYDROCODONE/APAP (5/325) TAB PO ×2 (11:14→23:43)
[2018-02-13] MEDS: LACTULOSE 30ML CUP PO (13:11)
[2018-02-13] MEDS: hydrALAzine 20 MG INJ IV (15:04)
[2018-02-13] MEDS: ATORVASTATIN 40 MG TAB PO (21:00)
[2018-02-14] MEDS: LEVALBUTEROL (NEB) 0.63 MG/3 ML AMP HHN ×5 (08:00→23:11)
[2018-02-14 08:51] LABS: ADD MAN DIFF? NO
[2018-02-14 09:16] LABS: ANION GAP 22 (8-16); BLOOD UREA NITROGEN 61 mg/dl (7-20); CALCIUM 10.8 mg/dl (8.4-10.2); CARBON DIOXIDE 31 mmol/L (21-31); CHLORIDE 96 mmol/L (97-110); CREATININE 6.38 mg/dl (0.61-1.24); GLUCOSE 90 mg/dl (70-220); POTASSIUM 5.1 mmol/L (3.5-5.1); SODIUM 144 mmol/L (135-144)
[2018-02-14] MEDS: LOSARTAN 25 MG TAB PO ×2 (09:27→21:00)
[2018-02-14] MEDS: CLOPIDOGREL 75 MG TAB PO (09:27)
[2018-02-14] MEDS: AMLODIPINE 5 MG TAB PO (09:27)
[2018-02-14] MEDS: NIFEdipine (XL) 60 MG TAB PO ×2 (09:28→21:00)
[2018-02-14] MEDS: CINACALCET 30 MG TAB PO ×2 (09:28→21:00)
[2018-02-14] MEDS: ASPIRIN 81 MG TAB PO (09:28)
[2018-02-14] MEDS: SEVELAMER CARBONATE 0.8 GM PKT PO ×3 (09:28→17:06)
[2018-02-14] MEDS: MULTIVIT/CA CARB/B CMPLX/FA TAB PO (09:28)
[2018-02-14] MEDS: BENAZEPRIL 40 MG TAB PO (09:28)
[2018-02-14] MEDS: NYSTATIN SUSP 5 ML CUP PO ×4 (09:29→21:00)
[2018-02-14] MEDS: MEGESTROL (40 MG/ML) 10ML CUP PO ×2 (09:29→21:00)
[2018-02-14 09:48] LABS: WHITE BLOOD COUNT 18.7 10^3/ul (4.8-10.8)
[2018-02-14 09:48] LABS: ABNORMAL IP MESSAGE 1; BASOPHILS % 0.2 % (0.0-2.0); HEMATOCRIT 33.7 % (42.0-52.0); HEMOGLOBIN 10.6 g/dl (14.0-18.0); LYMPHOCYTES # 0.4 10^3/ul (0.8-2.9); LYMPHOCYTES % 2.2 % (15.0-51.0); MEAN CORPUSCULAR HGB CONC 31.5 g/dl (32.0-37.0); MEAN CORPUSCULAR VOLUME 82.8 fl (82.0-101.0); MEAN PLATELET VOLUME 9.6 fl (7.4-10.4); MONOCYTE # 1.3 10^3/ul (0.3-0.9); NEUTROPHIL # 16.8 10^3/ul (1.6-7.5); NEUTROPHILS % 90.1 % (39.0-77.0); PLATELET COUNT 459 10^3/UL (140-415); POSITIVE DIFF @See below; RED BLOOD COUNT 4.07 10^6/ul (4.70-6.10); RED CELL DISTRIBUTION WIDTH 17.8 % (11.5-14.5)
[2018-02-14] MEDS: CLONIDINE 0.2 MG/24 HR PATCH TRANSDERM (14:00)
[2018-02-14] MEDS: SOD CHLORIDE 0.45% 1,000 ML IV (17:09)
[2018-02-14] MEDS: HYDROCODONE/APAP (5/325) TAB PO (18:43)
[2018-02-14] MEDS: ATORVASTATIN 40 MG TAB PO (21:00)
[2018-02-14] MEDS: AL HYDROX/MG HYDROX/SIMETH 30 ML CUP PO (23:37)
[2018-02-15] MEDS: morphine 2 MG INJ IV ×4 (01:04→21:23)
[2018-02-15] MEDS: LOSARTAN 25 MG TAB PO ×2 (07:38→21:00)
[2018-02-15] MEDS: AMLODIPINE 5 MG TAB PO (07:39)
[2018-02-15] MEDS: NIFEdipine (XL) 60 MG TAB PO ×2 (07:39→21:00)
[2018-02-15] MEDS: BENAZEPRIL 40 MG TAB PO (07:39)
[2018-02-15] MEDS: SEVELAMER CARBONATE 0.8 GM PKT PO ×3 (07:55→16:39)
[2018-02-15] MEDS: LEVALBUTEROL (NEB) 0.63 MG/3 ML AMP HHN ×2 (08:00→16:00)
[2018-02-15] MEDS: NYSTATIN SUSP 5 ML CUP PO ×4 (09:00→21:00)
[2018-02-15] MEDS: CINACALCET 30 MG TAB PO ×2 (09:00→21:00)
[2018-02-15] MEDS: CLOPIDOGREL 75 MG TAB PO (09:00)
[2018-02-15] MEDS: ASPIRIN 81 MG TAB PO (09:00)
[2018-02-15] MEDS: MEGESTROL (40 MG/ML) 10ML CUP PO ×2 (09:00→21:00)
[2018-02-15] MEDS: MULTIVIT/CA CARB/B CMPLX/FA TAB PO (09:00)
[2018-02-15 11:53] LABS: ADD MAN DIFF? NO
[2018-02-15 12:01] LABS: WHITE BLOOD COUNT 16.5 10^3/ul (4.8-10.8)
[2018-02-15 12:01] LABS: ABNORMAL IP MESSAGE 1; BASOPHILS % 0.1 % (0.0-2.0); HEMATOCRIT 29.7 % (42.0-52.0); HEMOGLOBIN 9.6 g/dl (14.0-18.0); LYMPHOCYTES # 0.5 10^3/ul (0.8-2.9); LYMPHOCYTES % 2.7 % (15.0-51.0); MEAN CORPUSCULAR HEMOGLOBIN 26.7 pg (29.0-33.0); MEAN CORPUSCULAR HGB CONC 32.3 g/dl (32.0-37.0); MEAN CORPUSCULAR VOLUME 82.7 fl (82.0-101.0); MEAN PLATELET VOLUME 9.6 fl (7.4-10.4); MONOCYTE # 1.3 10^3/ul (0.3-0.9); MONOCYTES % 7.6 % (0.0-11.0); NEUTROPHIL # 14.7 10^3/ul (1.6-7.5); NEUTROPHILS % 89.1 % (39.0-77.0); PLATELET COUNT 400 10^3/UL (140-415); POSITIVE DIFF @See below; RED BLOOD COUNT 3.59 10^6/ul (4.70-6.10); RED CELL DISTRIBUTION WIDTH 17.6 % (11.5-14.5)
[2018-02-15] MEDS: NA POLYST SULFON 15 GM/60 ML BTL PO (13:30)
[2018-02-15] MEDS: SOD CHLORIDE 0.45% 1,000 ML IV (14:00)
[2018-02-15] MEDS: ATORVASTATIN 40 MG TAB PO (21:00)
[2018-02-16] MEDS: morphine 2 MG INJ IV ×2 (01:56→20:47)
[2018-02-16] MEDS: HYDROCODONE/APAP (5/325) TAB PO ×2 (04:49→10:10)
[2018-02-16 07:27] LABS: ADD MAN DIFF? NO
[2018-02-16 07:42] LABS: BASOPHILS % 0.2 % (0.0-2.0); EOSINOPHILS % 0.1 % (0.0-7.0); HEMATOCRIT 27.4 % (42.0-52.0); HEMOGLOBIN 8.8 g/dl (14.0-18.0); LYMPHOCYTES # 0.6 10^3/ul (0.8-2.9); LYMPHOCYTES % 4.1 % (15.0-51.0); MEAN CORPUSCULAR HEMOGLOBIN 26.2 pg (29.0-33.0); MEAN CORPUSCULAR HGB CONC 32.1 g/dl (32.0-37.0); MEAN CORPUSCULAR VOLUME 81.5 fl (82.0-101.0); MEAN PLATELET VOLUME 9.4 fl (7.4-10.4); MONOCYTE # 1.1 10^3/ul (0.3-0.9); MONOCYTES % 7.7 % (0.0-11.0); NEUTROPHIL # 12.9 10^3/ul (1.6-7.5); NEUTROPHILS % 87.4 % (39.0-77.0); PLATELET COUNT 361 10^3/UL (140-415); RED BLOOD COUNT 3.36 10^6/ul (4.70-6.10); RED CELL DISTRIBUTION WIDTH 18.2 % (11.5-14.5)
[2018-02-16 07:42] LABS: WHITE BLOOD COUNT 14.8 10^3/ul (4.8-10.8)
[2018-02-16] MEDS: LEVALBUTEROL (NEB) 0.63 MG/3 ML AMP HHN ×3 (08:05→15:13)
[2018-02-16 08:17] LABS: ANION GAP 24 (8-16); BLOOD UREA NITROGEN 101 mg/dl (7-20); CALCIUM 10.1 mg/dl (8.4-10.2); CARBON DIOXIDE 27 mmol/L (21-31); CHLORIDE 95 mmol/L (97-110); CREATININE 9.12 mg/dl (0.61-1.24); GLUCOSE 87 mg/dl (70-220); POTASSIUM 5.5 mmol/L (3.5-5.1); SODIUM 140 mmol/L (135-144)
[2018-02-16] MEDS: AMLODIPINE 5 MG TAB PO (09:00)
[2018-02-16] MEDS: NIFEdipine (XL) 60 MG TAB PO ×2 (09:00→20:55)
[2018-02-16] MEDS: MULTIVIT/CA CARB/B CMPLX/FA TAB PO (09:00)
[2018-02-16] MEDS: BENAZEPRIL 40 MG TAB PO (09:00)
[2018-02-16] MEDS: CLOPIDOGREL 75 MG TAB PO (09:00)
[2018-02-16] MEDS: NYSTATIN SUSP 5 ML CUP PO ×4 (09:00→20:54)
[2018-02-16] MEDS: MEGESTROL (40 MG/ML) 10ML CUP PO ×2 (09:00→20:54)
[2018-02-16] MEDS: CINACALCET 30 MG TAB PO ×2 (09:00→20:55)
[2018-02-16] MEDS: ASPIRIN 81 MG TAB PO (10:04)
[2018-02-16] MEDS: SEVELAMER CARBONATE 0.8 GM PKT PO ×3 (10:04→17:13)
[2018-02-16] MEDS: LOSARTAN 25 MG TAB PO ×2 (10:04→20:53)
[2018-02-16] MEDS: ACETAMINOPHEN 500 MG TAB PO (12:43)
[2018-02-16] MEDS: LACTULOSE 30ML CUP PO (12:43)
[2018-02-16] MEDS: AL HYDROX/MG HYDROX/SIMETH 30 ML CUP PO (12:48)
[2018-02-16] MEDS: hydrALAzine 20 MG INJ IV (17:15)
[2018-02-16 18:01] LABS: PTH CALCIUM 10.2 mg/dL (8.6-10.3)
[2018-02-16] MEDS ORDERED: POLYETHYLENE GLYCOL 17 GM PACKET PO (19:00)
[2018-02-16] MEDS: DIPHENHYDRAMINE 25 MG CAP PO (20:52)
[2018-02-16] MEDS: ATORVASTATIN 40 MG TAB PO (20:52)
[2018-02-17] MEDS: hydrALAzine 20 MG INJ IV ×2 (02:29→11:58)
[2018-02-17 07:26] LABS: ADD MAN DIFF? NO
[2018-02-17 07:35] LABS: ABNORMAL IP MESSAGE 1; BASOPHILS % 0.2 % (0.0-2.0); HEMATOCRIT 29.3 % (42.0-52.0); HEMOGLOBIN 9.3 g/dl (14.0-18.0); LYMPHOCYTES # 0.4 10^3/ul (0.8-2.9); LYMPHOCYTES % 2.8 % (15.0-51.0); MEAN CORPUSCULAR HEMOGLOBIN 26.1 pg (29.0-33.0); MEAN CORPUSCULAR HGB CONC 31.7 g/dl (32.0-37.0); MEAN CORPUSCULAR VOLUME 82.1 fl (82.0-101.0); MEAN PLATELET VOLUME 9.6 fl (7.4-10.4); MONOCYTES % 7.2 % (0.0-11.0); NEUTROPHIL # 12.1 10^3/ul (1.6-7.5); NEUTROPHILS % 89.1 % (39.0-77.0); PLATELET COUNT 372 10^3/UL (140-415); POSITIVE DIFF @See below; RED BLOOD COUNT 3.57 10^6/ul (4.70-6.10); RED CELL DISTRIBUTION WIDTH 18.2 % (11.5-14.5)
[2018-02-17 07:35] LABS: WHITE BLOOD COUNT 13.6 10^3/ul (4.8-10.8)
[2018-02-17 07:46] LABS: ANION GAP 26 (8-16); CALCIUM 10.6 mg/dl (8.4-10.2); CARBON DIOXIDE 25 mmol/L (21-31); CHLORIDE 95 mmol/L (97-110); CREATININE 10.66 mg/dl (0.61-1.24); GLUCOSE 78 mg/dl (70-220); SODIUM 140 mmol/L (135-144)
[2018-02-17] MEDS: SEVELAMER CARBONATE 0.8 GM PKT PO ×3 (07:55→17:55)
[2018-02-17 07:56] LABS: BLOOD UREA NITROGEN 120 mg/dl (7-20)
[2018-02-17] MEDS: ASPIRIN 81 MG TAB PO (07:57)
[2018-02-17] MEDS: MEGESTROL (40 MG/ML) 10ML CUP PO ×2 (07:57→20:05)
[2018-02-17] MEDS: NYSTATIN SUSP 5 ML CUP PO ×4 (07:57→20:06)
[2018-02-17] MEDS: CLOPIDOGREL 75 MG TAB PO (07:58)
[2018-02-17] MEDS: CINACALCET 30 MG TAB PO ×2 (07:58→20:05)
[2018-02-17] MEDS: MULTIVIT/CA CARB/B CMPLX/FA TAB PO (07:58)
[2018-02-17 07:59] LABS: POTASSIUM 6.3 mmol/L (3.5-5.1)
[2018-02-17] MEDS: AMLODIPINE 5 MG TAB PO (07:59)
[2018-02-17] MEDS: LOSARTAN 25 MG TAB PO ×2 (07:59→20:05)
[2018-02-17] MEDS: BENAZEPRIL 40 MG TAB PO (07:59)
[2018-02-17] MEDS: NIFEdipine (XL) 60 MG TAB PO ×2 (08:00→20:06)
[2018-02-17] MEDS: LEVALBUTEROL (NEB) 0.63 MG/3 ML AMP HHN ×3 (08:00→15:09)
[2018-02-17] MEDS: NA POLYST SULFON 15 GM/60 ML BTL PO (09:09)
[2018-02-17] MEDS: ATORVASTATIN 40 MG TAB PO (20:06)
[2018-02-17] MEDS: POLYETHYLENE GLYCOL 17 GM PACKET PO (20:08)
[2018-02-18] MEDS: hydrALAzine 20 MG INJ IV ×2 (01:32→16:28)
[2018-02-18 06:42] LABS: ADD MAN DIFF? NO
[2018-02-18 06:43] LABS: WHITE BLOOD COUNT 10.8 10^3/ul (4.8-10.8)
[2018-02-18 06:43] LABS: ABNORMAL IP MESSAGE 1; BASOPHILS % 0.3 % (0.0-2.0); EOSINOPHILS % 0.1 % (0.0-7.0); HEMOGLOBIN 8.9 g/dl (14.0-18.0); LYMPHOCYTES # 0.4 10^3/ul (0.8-2.9); LYMPHOCYTES % 3.5 % (15.0-51.0); MEAN CORPUSCULAR HEMOGLOBIN 25.9 pg (29.0-33.0); MEAN CORPUSCULAR HGB CONC 31.8 g/dl (32.0-37.0); MEAN CORPUSCULAR VOLUME 81.6 fl (82.0-101.0); MEAN PLATELET VOLUME 9.4 fl (7.4-10.4); MONOCYTES % 9.5 % (0.0-11.0); NEUTROPHIL # 9.3 10^3/ul (1.6-7.5); NEUTROPHILS % 86.1 % (39.0-77.0); PLATELET COUNT 318 10^3/UL (140-415); POSITIVE DIFF @See below; RED BLOOD COUNT 3.43 10^6/ul (4.70-6.10); RED CELL DISTRIBUTION WIDTH 18.2 % (11.5-14.5)
[2018-02-18 07:10] LABS: ANION GAP 18 (8-16); BLOOD UREA NITROGEN 62 mg/dl (7-20); CALCIUM 10.8 mg/dl (8.4-10.2); CARBON DIOXIDE 30 mmol/L (21-31); CHLORIDE 99 mmol/L (97-110); GLUCOSE 87 mg/dl (70-220); POTASSIUM 5.1 mmol/L (3.5-5.1); SODIUM 142 mmol/L (135-144)
[2018-02-18 07:20] LABS: CREATININE 6.36 mg/dl (0.61-1.24)
[2018-02-18] MEDS: LEVALBUTEROL (NEB) 0.63 MG/3 ML AMP HHN ×4 (08:00→23:56)
[2018-02-18 08:03] LABS: ECHINOCYTOSIS 1+ (0-0); ELLIPTO 1+ (0-0); GIANT THROMBO% (M) 2 % (0-0); HYPOCHROMASIA 1+ (0-0); LYMPHOCYTES #M 0.1 10^3/ul (0.8-2.9); LYMPHOCYTES % (M) 1 % (15-51); MONOCYTE #M 1.1 10^3/ul (0.3-0.9); MONOCYTES % (M) 11 % (0-11); OVALOCYTES 1+ (0-0); POIKILOCYTOSIS 2+ (0-0); POLYCHROMASIA 3+ (0-0); REACTIVE LYMPHOCYTES #M 0.1 10^3/ul (0.0-0.0); REACTIVE LYMPHOCYTES% (M) 1 % (0-0); SCHISTOCYTES 1+ (0-0); SEGMENTED NEUTROPHILS (M) % 87 % (39-77); SMUDGE%M 3 % (0-0); SPHEROCYTES 1+ (0-0)
[2018-02-18] MEDS: NIFEdipine (XL) 60 MG TAB PO ×2 (09:37→20:24)
[2018-02-18] MEDS: MULTIVIT/CA CARB/B CMPLX/FA TAB PO (09:37)
[2018-02-18] MEDS: BENAZEPRIL 40 MG TAB PO (09:37)
[2018-02-18] MEDS: CLOPIDOGREL 75 MG TAB PO (09:37)
[2018-02-18] MEDS: LOSARTAN 25 MG TAB PO ×2 (09:37→20:24)
[2018-02-18] MEDS: AMLODIPINE 5 MG TAB PO (09:38)
[2018-02-18] MEDS: MEGESTROL (40 MG/ML) 10ML CUP PO ×2 (09:38→20:30)
[2018-02-18] MEDS: SEVELAMER CARBONATE 0.8 GM PKT PO ×3 (09:38→17:51)
[2018-02-18] MEDS: CINACALCET 30 MG TAB PO ×2 (09:38→20:23)
[2018-02-18] MEDS: ASPIRIN 81 MG TAB PO (09:38)
[2018-02-18] MEDS: NYSTATIN SUSP 5 ML CUP PO ×4 (09:39→20:24)
[2018-02-18] MEDS: ATORVASTATIN 40 MG TAB PO (20:23)
[2018-02-18] MEDS: morphine 2 MG INJ IV (21:21)
[2018-02-19] MEDS: LEVALBUTEROL (NEB) 0.63 MG/3 ML AMP HHN ×3 (08:00→23:50)
[2018-02-19] MEDS: hydrALAzine 20 MG INJ IV (08:00)
[2018-02-19] MEDS: ASPIRIN 81 MG TAB PO (08:03)
[2018-02-19] MEDS: MEGESTROL (40 MG/ML) 10ML CUP PO ×2 (08:03→20:16)
[2018-02-19] MEDS: SEVELAMER CARBONATE 0.8 GM PKT PO ×3 (08:03→18:00)
[2018-02-19] MEDS: NYSTATIN SUSP 5 ML CUP PO ×4 (08:03→20:16)
[2018-02-19] MEDS: CLOPIDOGREL 75 MG TAB PO (08:04)
[2018-02-19] MEDS: MULTIVIT/CA CARB/B CMPLX/FA TAB PO (08:05)
[2018-02-19] MEDS: CINACALCET 30 MG TAB PO ×2 (08:05→20:16)
[2018-02-19 08:56] LABS: PTH INTACT 142 pg/mL (14-64)
[2018-02-19] MEDS: BENAZEPRIL 40 MG TAB PO (09:00)
[2018-02-19] MEDS: AMLODIPINE 5 MG TAB PO (09:00)
[2018-02-19] MEDS: NIFEdipine (XL) 60 MG TAB PO ×2 (09:13→20:19)
[2018-02-19] MEDS: morphine 2 MG INJ IV ×2 (09:14→19:54)
[2018-02-19] MEDS: LOSARTAN 25 MG TAB PO ×2 (09:14→20:19)
[2018-02-19] MEDS: ATORVASTATIN 40 MG TAB PO (20:17)
[2018-02-20 05:36] LABS: ADD MAN DIFF? NO
[2018-02-20 05:40] LABS: ABNORMAL IP MESSAGE 1; BASOPHILS % 0.4 % (0.0-2.0); EOSINOPHILS % 0.4 % (0.0-7.0); HEMATOCRIT 26.5 % (42.0-52.0); HEMOGLOBIN 8.3 g/dl (14.0-18.0); LYMPHOCYTES # 0.4 10^3/ul (0.8-2.9); LYMPHOCYTES % 4.6 % (15.0-51.0); MEAN CORPUSCULAR HGB CONC 31.3 g/dl (32.0-37.0); MEAN CORPUSCULAR VOLUME 83.1 fl (82.0-101.0); NEUTROPHIL # 7.5 10^3/ul (1.6-7.5); NUCLEATED RED BLOOD CELLS% 0.2 /100WBC (0.0-0.0); PLATELET COUNT 281 10^3/UL (140-415); POSITIVE DIFF @See below; RED BLOOD COUNT 3.19 10^6/ul (4.70-6.10); RED CELL DISTRIBUTION WIDTH 18.4 % (11.5-14.5)
[2018-02-20 05:40] LABS: WHITE BLOOD COUNT 9.1 10^3/ul (4.8-10.8)
[2018-02-20 06:25] LABS: ANION GAP 23 (8-16); BLOOD UREA NITROGEN 94 mg/dl (7-20); CALCIUM 10.3 mg/dl (8.4-10.2); CARBON DIOXIDE 27 mmol/L (21-31); CHLORIDE 98 mmol/L (97-110); CREATININE 10.08 mg/dl (0.61-1.24); GLUCOSE 94 mg/dl (70-220); POTASSIUM 5.7 mmol/L (3.5-5.1); SODIUM 142 mmol/L (135-144)
[2018-02-20] MEDS ORDERED: NA POLYST SULFON 15 GM/60 ML BTL PO (08:00)
[2018-02-20] MEDS: LEVALBUTEROL (NEB) 0.63 MG/3 ML AMP HHN ×3 (08:00→23:55)
[2018-02-20] MEDS: BENAZEPRIL 40 MG TAB PO (09:00)
[2018-02-20] MEDS: AMLODIPINE 5 MG TAB PO (09:00)
[2018-02-20] MEDS: LOSARTAN 25 MG TAB PO ×2 (09:00→21:00)
[2018-02-20] MEDS: NIFEdipine (XL) 60 MG TAB PO ×2 (09:00→21:00)
[2018-02-20] MEDS: CINACALCET 30 MG TAB PO ×2 (09:08→21:00)
[2018-02-20] MEDS: MULTIVIT/CA CARB/B CMPLX/FA TAB PO (09:08)
[2018-02-20] MEDS: CLOPIDOGREL 75 MG TAB PO (09:08)
[2018-02-20] MEDS: ASPIRIN 81 MG TAB PO (09:08)
[2018-02-20] MEDS: SEVELAMER CARBONATE 0.8 GM PKT PO ×3 (09:08→18:28)
[2018-02-20] MEDS: MEGESTROL (40 MG/ML) 10ML CUP PO ×2 (09:09→21:00)
[2018-02-20] MEDS: NYSTATIN SUSP 5 ML CUP PO ×4 (09:09→21:00)
[2018-02-20] MEDS: hydrALAzine 20 MG INJ IV (13:46)
[2018-02-20] MEDS: morphine 2 MG INJ IV ×2 (14:10→18:29)
[2018-02-20] MEDS: ATORVASTATIN 40 MG TAB PO (21:00)
[2018-02-21] MEDS: LOSARTAN 25 MG TAB PO ×3 (02:01→21:00)
[2018-02-21] MEDS: NIFEdipine (XL) 60 MG TAB PO ×3 (02:02→21:00)
[2018-02-21] MEDS: morphine 2 MG INJ IV ×2 (03:53→07:58)
[2018-02-21 06:16] LABS: ANION GAP 16 (8-16); BLOOD UREA NITROGEN 49 mg/dl (7-20); CALCIUM 10.4 mg/dl (8.4-10.2); CARBON DIOXIDE 31 mmol/L (21-31); CHLORIDE 98 mmol/L (97-110); GLUCOSE 94 mg/dl (70-220); POTASSIUM 4.4 mmol/L (3.5-5.1); SODIUM 141 mmol/L (135-144)
[2018-02-21] MEDS: LEVALBUTEROL (NEB) 0.63 MG/3 ML AMP HHN ×3 (07:43→23:08)
[2018-02-21] MEDS: SEVELAMER CARBONATE 0.8 GM PKT PO ×3 (08:15→17:51)
[2018-02-21] MEDS: MULTIVIT/CA CARB/B CMPLX/FA TAB PO (09:00)
[2018-02-21] MEDS: MEGESTROL (40 MG/ML) 10ML CUP PO ×2 (09:00→21:00)
[2018-02-21] MEDS: CINACALCET 30 MG TAB PO ×2 (09:00→21:00)
[2018-02-21] MEDS: BENAZEPRIL 40 MG TAB PO (09:00)
[2018-02-21] MEDS: CLOPIDOGREL 75 MG TAB PO (09:00)
[2018-02-21] MEDS: ASPIRIN 81 MG TAB PO (09:00)
[2018-02-21] MEDS: NYSTATIN SUSP 5 ML CUP PO ×4 (09:00→21:00)
[2018-02-21] MEDS: AMLODIPINE 5 MG TAB PO (09:00)
[2018-02-21] MEDS: AL HYDROX/MG HYDROX/SIMETH 30 ML CUP PO (12:22)
[2018-02-21] MEDS: PANTOPRAZOLE 40 MG INJ IV (12:57)
[2018-02-21] MEDS: ONDANSETRON 4 MG INJ IV (12:57)
[2018-02-21] MEDS: CLONIDINE 0.2 MG/24 HR PATCH TRANSDERM (17:51)
[2018-02-21] MEDS: ATORVASTATIN 40 MG TAB PO (21:00)
[2018-02-22] MEDS: PANTOPRAZOLE 40 MG INJ IV (05:42)
[2018-02-22 06:09] LABS: ADD MAN DIFF? NO
[2018-02-22 06:15] LABS: ABNORMAL IP MESSAGE 1; BASOPHILS % 0.3 % (0.0-2.0); EOSINOPHILS # 0.1 10^3/ul (0.0-0.5); EOSINOPHILS % 0.7 % (0.0-7.0); HEMATOCRIT 28.2 % (42.0-52.0); HEMOGLOBIN 8.6 g/dl (14.0-18.0); LYMPHOCYTES # 0.5 10^3/ul (0.8-2.9); LYMPHOCYTES % 4.8 % (15.0-51.0); MEAN CORPUSCULAR HEMOGLOBIN 25.5 pg (29.0-33.0); MEAN CORPUSCULAR HGB CONC 30.5 g/dl (32.0-37.0); MEAN CORPUSCULAR VOLUME 83.7 fl (82.0-101.0); MEAN PLATELET VOLUME 9.6 fl (7.4-10.4); MONOCYTE # 1.1 10^3/ul (0.3-0.9); MONOCYTES % 11.3 % (0.0-11.0); NEUTROPHIL # 8.2 10^3/ul (1.6-7.5); PLATELET COUNT 293 10^3/UL (140-415); POSITIVE DIFF @See below; RED BLOOD COUNT 3.37 10^6/ul (4.70-6.10); RED CELL DISTRIBUTION WIDTH 18.2 % (11.5-14.5)
[2018-02-22 06:15] LABS: WHITE BLOOD COUNT 9.9 10^3/ul (4.8-10.8)
[2018-02-22 06:38] LABS: ANION GAP 21 (8-16); BLOOD UREA NITROGEN 69 mg/dl (7-20); CALCIUM 10.6 mg/dl (8.4-10.2); CARBON DIOXIDE 29 mmol/L (21-31); CHLORIDE 99 mmol/L (97-110); CREATININE 7.32 mg/dl (0.61-1.24); GLUCOSE 85 mg/dl (70-220); POTASSIUM 5.2 mmol/L (3.5-5.1); SODIUM 144 mmol/L (135-144)
[2018-02-22] MEDS: LEVALBUTEROL (NEB) 0.63 MG/3 ML AMP HHN ×3 (08:00→23:15)
[2018-02-22] MEDS: SEVELAMER CARBONATE 0.8 GM PKT PO ×3 (08:15→17:40)
[2018-02-22] MEDS: NIFEdipine (XL) 60 MG TAB PO ×2 (09:00→21:00)
[2018-02-22] MEDS: CLOPIDOGREL 75 MG TAB PO (09:00)
[2018-02-22] MEDS: AMLODIPINE 5 MG TAB PO (09:00)
[2018-02-22] MEDS: ASPIRIN 81 MG TAB PO (09:00)
[2018-02-22] MEDS: MEGESTROL (40 MG/ML) 10ML CUP PO ×2 (09:00→21:00)
[2018-02-22] MEDS: BENAZEPRIL 40 MG TAB PO (09:00)
[2018-02-22] MEDS: LOSARTAN 25 MG TAB PO ×2 (09:00→21:00)
[2018-02-22] MEDS: MULTIVIT/CA CARB/B CMPLX/FA TAB PO (09:00)
[2018-02-22] MEDS: NYSTATIN SUSP 5 ML CUP PO ×4 (09:00→21:00)
[2018-02-22] MEDS: CINACALCET 30 MG TAB PO ×2 (09:00→21:00)
[2018-02-22] MEDS: morphine 2 MG INJ IV ×2 (10:56→15:08)
[2018-02-22] MEDS: morphine 4 MG/ML VIAL IV ×3 (16:53→20:53)
[2018-02-22] MEDS: ATORVASTATIN 40 MG TAB PO (21:00)
[2018-02-23] MEDS: morphine 4 MG/ML VIAL IV ×8 (00:29→23:11)
[2018-02-23 06:08] LABS: ADD MAN DIFF? NO
[2018-02-23 06:22] LABS: ABNORMAL IP MESSAGE 1; BASOPHILS % 0.4 % (0.0-2.0); EOSINOPHILS # 0.1 10^3/ul (0.0-0.5); EOSINOPHILS % 0.7 % (0.0-7.0); HEMATOCRIT 28.3 % (42.0-52.0); HEMOGLOBIN 8.6 g/dl (14.0-18.0); LYMPHOCYTES # 0.5 10^3/ul (0.8-2.9); LYMPHOCYTES % 5.8 % (15.0-51.0); MEAN CORPUSCULAR HEMOGLOBIN 25.7 pg (29.0-33.0); MEAN CORPUSCULAR HGB CONC 30.4 g/dl (32.0-37.0); MEAN CORPUSCULAR VOLUME 84.5 fl (82.0-101.0); MEAN PLATELET VOLUME 9.7 fl (7.4-10.4); MONOCYTE # 0.9 10^3/ul (0.3-0.9); MONOCYTES % 10.4 % (0.0-11.0); NEUTROPHIL # 7.3 10^3/ul (1.6-7.5); NEUTROPHILS % 82.3 % (39.0-77.0); PLATELET COUNT 293 10^3/UL (140-415); POSITIVE DIFF @See below; RED BLOOD COUNT 3.35 10^6/ul (4.70-6.10); RED CELL DISTRIBUTION WIDTH 18.5 % (11.5-14.5)
[2018-02-23 06:22] LABS: WHITE BLOOD COUNT 8.9 10^3/ul (4.8-10.8)
[2018-02-23] MEDS: PANTOPRAZOLE 40 MG INJ IV (06:22)
[2018-02-23 06:31] LABS: ANION GAP 16 (8-16); BLOOD UREA NITROGEN 39 mg/dl (7-20); CALCIUM 10.2 mg/dl (8.4-10.2); CARBON DIOXIDE 33 mmol/L (21-31); CHLORIDE 97 mmol/L (97-110); CREATININE 4.55 mg/dl (0.61-1.24); GLUCOSE 76 mg/dl (70-220); POTASSIUM 4.7 mmol/L (3.5-5.1); SODIUM 141 mmol/L (135-144)
[2018-02-23] MEDS: LEVALBUTEROL (NEB) 0.63 MG/3 ML AMP HHN (08:00)
[2018-02-23] MEDS: SEVELAMER CARBONATE 0.8 GM PKT PO ×3 (08:15→18:00)
[2018-02-23] MEDS: NYSTATIN SUSP 5 ML CUP PO ×2 (09:00→13:00)
[2018-02-23] MEDS: MULTIVIT/CA CARB/B CMPLX/FA TAB PO (09:00)
[2018-02-23] MEDS: NIFEdipine (XL) 60 MG TAB PO ×2 (09:00→21:00)
[2018-02-23] MEDS: ASPIRIN 81 MG TAB PO (09:00)
[2018-02-23] MEDS: LOSARTAN 25 MG TAB PO ×2 (09:00→21:00)
[2018-02-23] MEDS: CINACALCET 30 MG TAB PO ×2 (09:00→21:00)
[2018-02-23] MEDS: AMLODIPINE 5 MG TAB PO (09:00)
[2018-02-23] MEDS: MEGESTROL (40 MG/ML) 10ML CUP PO (09:00)
[2018-02-23] MEDS: BENAZEPRIL 40 MG TAB PO (09:00)
[2018-02-23] MEDS: CLOPIDOGREL 75 MG TAB PO (09:09)
[2018-02-24] MEDS: morphine 4 MG/ML VIAL IV ×7 (02:58→23:00)
[2018-02-24] MEDS: SEVELAMER CARBONATE 0.8 GM PKT PO ×3 (08:15→18:39)
[2018-02-24] MEDS: BENAZEPRIL 40 MG TAB PO (09:00)
[2018-02-24] MEDS: AMLODIPINE 5 MG TAB PO (09:00)
[2018-02-24] MEDS: CINACALCET 30 MG TAB PO ×3 (09:00→21:02)
[2018-02-24] MEDS: NIFEdipine (XL) 60 MG TAB PO ×3 (09:00→21:02)
[2018-02-24] MEDS: CLOPIDOGREL 75 MG TAB PO (09:00)
[2018-02-24] MEDS: LOSARTAN 25 MG TAB PO ×3 (09:00→21:02)
[2018-02-24] MEDS: ASPIRIN 81 MG TAB PO (09:00)
[2018-02-25] MEDS: morphine 4 MG/ML VIAL IV ×2 (02:56→06:48)
[2018-02-25] MEDS: SEVELAMER CARBONATE 0.8 GM PKT PO ×3 (08:15→17:37)
[2018-02-25] MEDS: NIFEdipine (XL) 60 MG TAB PO ×2 (08:52→21:48)
[2018-02-25] MEDS: ASPIRIN 81 MG TAB PO (08:52)
[2018-02-25] MEDS: CLOPIDOGREL 75 MG TAB PO (08:53)
[2018-02-25] MEDS: AMLODIPINE 5 MG TAB PO (08:53)
[2018-02-25] MEDS: CINACALCET 30 MG TAB PO ×2 (08:53→21:46)
[2018-02-25] MEDS: BENAZEPRIL 40 MG TAB PO (08:53)
[2018-02-25] MEDS: LOSARTAN 25 MG TAB PO ×2 (09:00→21:47)
[2018-02-25] MEDS ORDERED: oxyCODONE 15 MG TAB PO (13:00)
[2018-02-25] MEDS: oxyCODONE 15 MG TAB PO (13:00)
[2018-02-25] MEDS ORDERED: oxyCODONE 5 MG TAB PO (17:30)
[2018-02-25] MEDS: oxyCODONE 5 MG TAB PO ×2 (17:30→21:52)
[2018-02-26] MEDS: oxyCODONE 5 MG TAB PO ×6 (01:30→21:30)
[2018-02-26] MEDS: SEVELAMER CARBONATE 0.8 GM PKT PO ×2 (08:15→11:54)
[2018-02-26] MEDS: ASPIRIN 81 MG TAB PO (08:49)
[2018-02-26] MEDS: CINACALCET 30 MG TAB PO (08:50)
[2018-02-26] MEDS: NIFEdipine (XL) 60 MG TAB PO (08:50)
[2018-02-26] MEDS: LOSARTAN 25 MG TAB PO (08:50)
[2018-02-26] MEDS: AMLODIPINE 5 MG TAB PO (08:50)
[2018-02-26] MEDS: CLOPIDOGREL 75 MG TAB PO (08:50)
[2018-02-26] MEDS: BENAZEPRIL 40 MG TAB PO (08:50)
[2018-02-27] MEDS: oxyCODONE 5 MG TAB PO ×5 (01:30→17:55)
[2018-02-27] MEDS: CLONIDINE 0.3 MG/24 HR PATCH TRANSDERM (16:44)
== END 2018-02-27 19:30 | disposition hospice, inpatient (51) | DRG 871 ==
LOC: TEL 02-01 00:29 → MS2 02-17 18:10 → E/R 16:57 → TEL 18:30
PROC: 5A1D70Z Performance of Urinary Filtration, Intermittent, Less than 6 Hours Per Day (ICD-10-PCS; principal; 2018-01-31)
DX: A41.9 Sepsis, unspecified organism (principal); J18.9 Pneumonia, unspecified organism; J96.01 Acute respiratory failure with hypoxia; N18.6 End stage renal disease; I13.2 Hypertensive heart and chronic kidney disease with heart failure and with stage 5 chronic kidney disease, or end stage renal disease; I50.40 Unspecified combined systolic (congestive) and diastolic (congestive) heart failure; R64 Cachexia; Z68.1 Body mass index [BMI] 19.9 or less, adult; I70.263 Atherosclerosis of native arteries of extremities with gangrene, bilateral legs; E11.22 Type 2 diabetes mellitus with diabetic chronic kidney disease; I07.1 Rheumatic tricuspid insufficiency; Z99.2 Dependence on renal dialysis; I25.10 Atherosclerotic heart disease of native coronary artery without angina pectoris; I25.2 Old myocardial infarction; Z95.0 Presence of cardiac pacemaker; H54.8 Legal blindness, as defined in USA; D63.1 Anemia in chronic kidney disease; F41.9 Anxiety disorder, unspecified; I35.0 Nonrheumatic aortic (valve) stenosis; E87.5 Hyperkalemia; K59.00 Constipation, unspecified; R65.20 Severe sepsis without septic shock; E11.42 Type 2 diabetes mellitus with diabetic polyneuropathy; F32.9 Major depressive disorder, single episode, unspecified; Z66 Do not resuscitate; L89.152 Pressure ulcer of sacral region, stage 2
CPT/HCPCS: 36415; 36600; 71045; 80048; 80053; 80202; 82803; 82962; 83605; 83970; 84484; 85014; 85018; 85025; 85610; 85730; 86706; 87040; 87081; 87220; 87340; 90935; 93005; 93922; 94640; 94664; 96374; 96375; 96376; 99291-25